=== PATIENT | female | born 1945 | race Caucasian/White ===

== ENCOUNTER 2016-12-25 21:13 | Emergency (ER) | payer MEDICARE ==
[2011-11-03 06:44] VITALS: BMI 29.7
[2016-12-25 22:04] LABS: APPEARANCE CLEAR (CLEAR); BILIRUBIN NEGATIVE (NEGATIVE); COLOR YELLOW (YELLOW); GLUCOSE NEGATIVE (NEGATIVE); KETONE NEGATIVE (NEGATIVE); LEUKOCYTE ESTERASE NEGATIVE (NEGATIVE); NITRITE NEGATIVE (NEGATIVE); PROTEIN NEGATIVE (NEGATIVE); SPECIFIC GRAVITY 1.015 (1.005-1.020); UROBILINOGEN NORMAL (NORMAL)
[2016-12-25 22:25] LABS: BASOPHILS 0.3 % (0-2); HEMATOCRIT 43.2 % (36.0-48.0); HEMOGLOBIN 14.4 g/dL (12-16); IMMATURE GRANULOCYTES 0.1 % (0-5); LYMPHOCYTES 33.8 % (15-50); MCH 31.1 pg (26.0-34.0); MCHC 33.3 g/dL (31.0-37.0); MCV 93.3 fL (80.0-100.0); MEAN PLATELET VOLUME 9.4 fL (7.4-10.4); MONOCYTES 9.2 % (2-11); NEUTROPHILS 54.6 % (40-80); PLATELET COUNT 322 10x3/uL (130-400); RBC 4.63 10x6/uL (4.00-5.40); RDW 13.6 % (11.5-14.5)
[2016-12-25 22:52] LABS: CALC OSMOLALITY 280 mosm/kg (275-300); CALCIUM 9.5 mg/dL (8.5-10.1); CARBON DIOXIDE 29.7 mmol/L (21.0-32.0); CHLORIDE - SERUM 103 mmol/L (98-107); CKMB 0.4 U/L (0.0-3.6); CREATINE KINASE 32 UL (21-215); CREATININE - SERUM 1.2 mg/dL (0.6-1.3); GLUCOSE 134 mg/dL (74-106); POTASSIUM - SERUM 3.3 mmol/L (3.5-5.1); SODIUM 140 mmol/L (136-145); THYROID STIMULATING HORMONE 0.75 uIU/mL (0.36-3.74); UREA NITROGEN 13 mg/dL (7-18); eGFR NON AFRICAN AMERICAN 47 mL/min (90-120)
[2016-12-25 22:53] LABS: TROPONIN-I < 0.017 ng/mL (0.000-0.060)
== END 2016-12-25 23:15 | disposition home or self-care (01) ==
LOC: D.ER 21:13
PROVIDERS: Nurse Practitioner Acute Care
DX: R00.2 Palpitations (principal); K21.9 Gastro-esophageal reflux disease without esophagitis; E03.9 Hypothyroidism, unspecified; I49.3 Ventricular premature depolarization

== ENCOUNTER → 2017-08-29 17:58 | Outpatient (CLI) | payer MEDICARE ==
[2011-11-03 06:44] VITALS: BMI 29.7
[~2017-08-29 17:58] MED LIST: BACTRIM 400-801 TAB PO; ELIQUIS2.5 MG PO; ESTRACE 0.0142.5 GM VG; GLUCOSAMINE & C1 CAP PO; KEFLEX500 MG PO; METOPROLOL TART25 MG PO; MIRALAX17 GM PO; OXYCODONE HCL5 MG PO; OYST-CAL-5001 TAB PO; PROTONIX40 MG PO; SYNTHROID100 MCG PO; TYLENOL W/CODEI1 TAB PO; VITAMIN B COMPL1 TAB PO; VITAMIN D5000 UNIT PO; ZANAFLEX4 MG PO
[2017-09-09 16:25] VITALS: BMI 30.1
== END | disposition home or self-care (01) ==
LOC: D.LABREF 17:58
DX: M17.12 Unilateral primary osteoarthritis, left knee (principal); Z11.2 Encounter for screening for other bacterial diseases

== ENCOUNTER 2017-09-07 10:00 | Inpatient (IN) | payer MEDICARE ==
[~2017-09-07] VITALS: Ht 152.4 cm; Wt 70.0 kg
--- NOTE | ~2017-09-07 | OP ---
PATIENT NAME: MAYRA POWERS MEDICAL RECORD: [id number] :[birth year] LOCATION:D.MS [id number] ADMISSION DATE:09/09/17 SURGEON: ANDI LEW, DATE OF OPERATION: 09/09/2017 PROCEDURE PERFORMED: Left total knee arthroplasty. PREOPERATIVE DIAGNOSIS: Left knee osteoarthritis. POSTOPERATIVE DIAGNOSIS: Left knee osteoarthritis. INDICATIONS: Ms. Powers is a 71-year-old female that has suffered with left knee pain for quite some time now. She has tried taking anti-inflammatories and had injections, which none have been successful recently and she is tired of it affecting her activities of daily living and wished to proceed forward with the procedure. She is aware of the risks and benefits of procedure as she was informed in the office. SURGEON: Andi Lew DO TOURNIQUET TIME: 51 minutes. BLOOD LOSS: Approximately 150 mL. COMPLICATIONS: None. DESCRIPTION OF PROCEDURE: The patient was given a block in the preoperative area and taken to the operative suite, laid in supine position. Left lower extremity was prepped and draped in sterile fashion. The patient was given a gram of Ancef preoperatively and TXA as well. Once both lower extremities were prepped and draped in sterile fashion, timeout was performed and everyone was agreement with the correct side, site, and patient. The incision was marked out then on the anterior aspect of the knee in the midline and the Ioban was placed over the knee. The 10-blade knife was then used to dissect down to the capsule and then switched out for a new 10-blade. The capsulotomy was performed in the medial parapatellar approach. After medial patellar approach was done, the patella was everted and milled down to appropriate size for the patellar prosthesis. The knee was then flexed up and then the intramedullary canal was entered with a drill and Asepto was used to irrigate and then suction was used to dissect out any marrow that had come out. The intramedullary guide was then used to resect the distal femur. After this was done, the tibia was exposed and tibial resection was done. We then cleaned out the menisci and extension blocks seemed to fit well and the knee was flexed up and the sizer was used to be a 60. The 4-in-1 cutting block was then placed and the femur was cut with the anterior, posterior, and chamfer cuts. After this was done, the trial was put in and the tibial tray was floated in and rotation was marked, seemed to be a little tight medially and we did a little medial release and the poly did seem to lift up a little, so pie crusting was done of the PCL. After this was done, the drill holes were made in the femur and then the patella was drilled for the prosthesis. The knee was thoroughly irrigated and then the tibia was exposed and sized to be 63 tibial tray and that was punched and then cement was mixed. Cement was put in the tibia and then on the tibial tray and put into place and impacted 2 times and the excess cement was removed each time. The femur was then put into place and a 10 poly was put in between them, knee brought into extension and the patella was put on place 2 with cement and the squeezer was OPERATIVE REPORT [id number] MAYRA POWERS put in. Excess cement was removed off the patella. Tourniquet was let down at 51 minutes. Any bleeders were coagulated at that time. We then sized up to a 10, 12 felt too tight, and decided to use a 10 deep-dish due to some of the liftoff. This seemed to trial very well and patient had good motion and was very stable. After this was done, the tibial locking bar was put in for the poly and the knee was thoroughly irrigated. Hasmukh was used inside the joint and the joint capsule was closed. The patella seemed to be a little lifted off medially and a slight lateral release was done on the outside of the capsule and the lateral side, which seemed to center the patella quite nicely. The capsule was then closed with #1 Vicryl in a mkdhes-ri-pchup fashion and then the capsule irrigated. Hasmukh was put on the capsule and the skin was closed with 2-0 Vicryl in inverted interrupted fashion and ZipLine was placed on the knee for skin closure. Blood loss approximately 150 mL. Tourniquet time 51 minutes. No complications. TRANSINT:[id number] Voice Confirmation ID: [id number] DOCUMENT ID: [id number] ANDI LEW DO at 1416 CC: [id number] DICTATION DATE: 09/09/17 1049 [employer] EQUIPMENT: 09/09/17 1348 ADM IN [facility] [address] [id number]
[~2017-09-07 10:00] MED LIST changes: -ELIQUIS2.5 MG PO; -KEFLEX500 MG PO; -MIRALAX17 GM PO; -OXYCODONE HCL5 MG PO
[2017-09-07] MEDS ORDERED: MIRALAX17 GM PO (11:04)
[2017-09-07 12:26] LABS: APPEARANCE CLEAR (CLEAR); BILIRUBIN NEGATIVE (NEGATIVE); COLOR GREEN (YELLOW); GLUCOSE NEGATIVE (NEGATIVE); KETONE NEGATIVE (NEGATIVE); NITRITE NEGATIVE (NEGATIVE); PROTEIN NEGATIVE (NEGATIVE); UROBILINOGEN NORMAL (NORMAL)
[2017-09-07 12:27] LABS: BASOPHILS 0.2 % (0-2); EOSINOPHILS 2.1 % (0-7); HEMATOCRIT 43.1 % (36.0-48.0); HEMOGLOBIN 14.2 g/dL (12-16); IMMATURE GRANULOCYTES 0.4 % (0-5); LYMPHOCYTES 37.3 % (15-50); MCH 30.5 pg (26.0-34.0); MCHC 32.9 g/dL (31.0-37.0); MCV 92.5 fL (80.0-100.0); MEAN PLATELET VOLUME 9.9 fL (7.4-10.4); MONOCYTES 11.2 % (2-11); NEUTROPHILS 48.8 % (40-80); PLATELET COUNT 366 10x3/uL (130-400); RBC 4.66 10x6/uL (4.00-5.40); RDW 13.5 % (11.5-14.5); WBC 8.1 10x3/uL (4.8-10.8)
[2017-09-07 12:28] LABS: ANION GAP 13.6 mmol/L (8-16); CALCIUM 9.5 mg/dL (8.5-10.1); CARBON DIOXIDE 27.3 mmol/L (21.0-32.0); POTASSIUM - SERUM 3.9 mmol/L (3.5-5.1)
[2017-09-07 12:34] LABS: APTT 28.6 SECONDS (22.8-39.4); INR 0.99 (0.85-1.17); PROTIME 12.7 SECONDS (11.6-15.0)
[2017-09-09] VITALS (14 sets, daily range): BP systolic 101–142; BP diastolic 53–76; Ht 152.4 cm; Wt 70.0 kg
[2017-09-10] VITALS: BP 98/54
[2017-09-10 05:17] LABS: HEMATOCRIT 36.7 % (36.0-48.0); HEMOGLOBIN 11.9 g/dL (12-16); MCHC 32.4 g/dL (31.0-37.0); MCV 92.4 fL (80.0-100.0); MEAN PLATELET VOLUME 9.9 fL (7.4-10.4); RBC 3.97 10x6/uL (4.00-5.40); WBC 16.6 10x3/uL (4.8-10.8)
[2017-09-10 05:42] LABS: ALBUMIN 3.1 g/dL (3.4-5.0); ANION GAP 13.9 mmol/L (8-16); BILIRUBIN - TOTAL 0.26 mg/dL (0.2-1.3); CALCIUM 8.5 mg/dL (8.5-10.1); CARBON DIOXIDE 25.3 mmol/L (21.0-32.0); POTASSIUM - SERUM 4.2 mmol/L (3.5-5.1); PROTEIN - SERUM 6.3 g/dL (6.4-8.2)
[2017-09-10 08:16] VITALS: BP 114/55
[2017-09-10 12:22] VITALS: BP 116/53
[2017-09-10 16:13] VITALS: BP 110/61
[2017-09-10 20:00] VITALS: BP 122/54
[2017-09-10 23:44] VITALS: BP 130/73
[2017-09-11 04:00] VITALS: BP 113/57
[2017-09-11 05:23] LABS: HEMATOCRIT 33.4 % (36.0-48.0); HEMOGLOBIN 10.7 g/dL (12-16); MCH 29.9 pg (26.0-34.0); MCV 93.3 fL (80.0-100.0); MEAN PLATELET VOLUME 9.6 fL (7.4-10.4); RBC 3.58 10x6/uL (4.00-5.40); RDW 13.6 % (11.5-14.5)
[2017-09-11 05:26] LABS: WBC 10.7 10x3/uL (4.8-10.8)
[2017-09-11 08:18] VITALS: BP 126/56
[2017-09-11] MEDS ORDERED: ELIQUIS2.5 MG PO (09:40)
[2017-09-11] MEDS ORDERED: OXYCODONE HCL5 MG PO (09:41)
[2017-09-11] MEDS ORDERED: KEFLEX500 MG PO (09:43)
== END 2017-09-11 12:56 | disposition home or self-care (01) | DRG 470 ==
LOC: D.SDCHOLD 09-09 05:17 → D.MS 09-09 11:26 → D.SDCHOLD 09-12 10:00
PROVIDERS: Orthopaedic Surgery
PROC: 0SRD0J9 Replacement of Left Knee Joint with Synthetic Substitute, Cemented, Open Approach (ICD-10-PCS; principal; 2017-09-09 09:00)
DX: M17.12 Unilateral primary osteoarthritis, left knee (principal); I10 Essential (primary) hypertension; Z87.891 Personal history of nicotine dependence

== ENCOUNTER → 2018-06-26 14:13 | Outpatient (CLI) | payer MEDICARE ==
[2017-09-09 16:25] VITALS: BMI 30.1
[~2018-06-26 14:13] MED LIST changes: +ALEVE220 MG PO; +BAYER CHEWABLE81 MG; +CYCLOBENZAPRINE5 MG PO; +ELIQUIS2.5 MG PO; +KEFLEX500 MG PO; +MIRALAX17 GM PO; +OXYCODONE HCL5 M1 PO; +OXYCODONE HCL5 MG PO; +SKELAXIN800 MG PO; +TYLENOL W/CODEI1 TAB
== END | disposition home or self-care (01) ==
LOC: D.LABREF 14:13
DX: M17.11 Unilateral primary osteoarthritis, right knee (principal); Z11.8 Encounter for screening for other infectious and parasitic diseases

== ENCOUNTER 2018-07-04 05:05 | Inpatient (IN) | payer MEDICARE ==
[2018-06-30 15:27] LABS: BASOPHILS 0.2 % (0-2); EOSINOPHILS 2.2 % (0-7); HEMOGLOBIN 13.6 g/dL (12-16); IMMATURE GRANULOCYTES 0.2 % (0-5); LYMPHOCYTES 41.9 % (15-50); MCH 28.5 pg (26.0-34.0); MCHC 32.4 g/dL (31.0-37.0); MCV 88.1 fL (80.0-100.0); MEAN PLATELET VOLUME 9.6 fL (7.4-10.4); MONOCYTES 7.2 % (2-11); NEUTROPHILS 48.3 % (40-80); PLATELET COUNT 306 10x3/uL (130-400); RBC 4.77 10x6/uL (4.00-5.40); RDW 13.5 % (11.5-14.5); WBC 8.1 10x3/uL (4.8-10.8)
[2018-06-30 15:29] LABS: APPEARANCE CLEAR (CLEAR); BILIRUBIN NEGATIVE (NEGATIVE); COLOR YELLOW (YELLOW); GLUCOSE NEGATIVE (NEGATIVE); KETONE NEGATIVE (NEGATIVE); NITRITE NEGATIVE (NEGATIVE); PROTEIN NEGATIVE (NEGATIVE); UROBILINOGEN NORMAL (NORMAL)
[2018-06-30 15:32] LABS: EPITHELIAL CELLS 0-5 /hpf (0-5); RED CELLS - URINE 0-5 /hpf (0-5)
[2018-06-30 15:33] LABS: BACTERIA FEW /hpf (NONE SEEN)
[2018-06-30 15:37] LABS: ANION GAP 10.7 mmol/L (8-16); CALCIUM 9.5 mg/dL (8.5-10.1); CARBON DIOXIDE 29.3 mmol/L (21.0-32.0); CREATININE - SERUM 1.2 mg/dL (0.6-1.3)
[2018-06-30 15:40] LABS: APTT 28.3 SECONDS (22.8-39.4); INR 1.11 (0.85-1.17); PROTIME 13.9 SECONDS (11.6-15.0)
[~2018-07-04] VITALS: Ht 152.4 cm; Wt 75.8 kg
--- NOTE | ~2018-07-04 | MORECARE ---
CASE MANAGEMENT DISCHARGE SUMMARY PATIENT: MAYRA SAWANT [place] UNIT: [id number] ADM DATE: 07/04/18 AGE: 72 : [birth year] SEX: F ROOM/BED: D.2207 AUTHOR: BUCK JAEGER PHYSICIAN: REFERRING PHYSICIAN: KEVIN LEW DO DATE OF SERVICE: 07/05/18 Discharge Plan Patient Name: MAYRA SAWANT Facility: [facility]:[place] : 1945 Planned Disposition: Home Anticipated Discharge Date: Discharge Date: Expected LOS: Initial Reviewer: [email or web address] Initial Review Date: 07/04/2018 Generated: 07/05/18 1:53 pm Comments DCP- Discharge Planning Updated by [email or web address]: Linda Agarwal on 07/05/18 11:[address] Patient Name: MAYRA SAWANT Admission Status: Elective Accout number: [id number] Admission Date: 07-04-2018 : 1945 Admission Diagnosis: Attending: KEVIN LEW Current LOS: 1 Anticipated DC Date: Planned Disposition: Home Primary Insurance: MEDICARE A & B Discharge Planning Comments: CM met with patient to assess discharge planning needs. Patient stated that she lives in [place] where she is independent at home. She lives with her and he will be the one to special education bus driver her home at discharge. There are 2 steps to her home. She would like to use [facility] in [place]. I spoke with Kevin and her appointment will be TuesdayJul 08 at 2:00pm. She has a walker, 3 in 1 bedside commode, wheelchair, CPM and Cool Pack. [employer] is the DME company who has already delivered the DME to home. CM will continue to follow and assist with DC planning as needed Rn Assessment: Linda Agarwal DCPIA - Discharge Planning Initial Assessment Updated by [email or web address]: Linda Agarwal on 07/05/18 12:44 pm * Is the patient Alert and Oriented? Yes * How many steps to enter\exit or inside your home? * PCP Belinda Abrams * Pharmacy [facility] [place] * Preadmission Environment Home with Family * ADLs Independent * Equipment Bedside Commode Rolling Walker Shower Chair Walker Wheelchair * Other Equipment has cpm and cool machine * List name and contact numbers for known caregivers / representatives who currently or will assist patient after discharge: Wilfrido () [phone] * Verbal permission to speak to the caregivers and representatives has been obtained from the patient. N/A * Additional services required to return to the preadmission environment? Yes * Can the patient safely return to the preadmission environment? Yes * Has this patient been hospitalized within the prior 30 days at any hospital? No Last DP export: 07/05/18 11:46 Patient Name: MAYRA SAWANT Page [id number] at 1253 All edits/amendments must be made on the electronic document DICTATION DATE: 07/05/181252 FERRYBOAT OPERATOR HELPER: KRISTOFER 07/05/181252 RPT#: [id number] DC DATE: STATUS: ADM IN [facility] [address] [place] [address] END OF REPORT
--- NOTE | ~2018-07-04 | OP ---
PATIENT NAME: MAYRA POWERS KIYA MEDICAL RECORD: [id number] :[birth year] LOCATION:D.MS Elias2208 ADMISSION DATE:07/04/18 SURGEON: KEVIN LEW DO DATE OF OPERATION: 07/04/2018 PROCEDURE PERFORMED: A right total knee arthroplasty, used was a Biomet Vanguard cruciate retaining 57.5 right femur, a 67 tibia, 31 patella, and a 14 poly anterior stabilized E-poly. PREOPERATIVE DIAGNOSIS: Right knee osteoarthritis, end-stage. POSTOPERATIVE DIAGNOSIS: Right knee osteoarthritis, end-stage. INDICATIONS: Ms. Powers is a 72-year-old female who had her left knee done at the beginning of this year, I believe in August, she did well with that one. Her right knee had been giving her problems for quite some time. She had tried injections, physical therapy and all manner of nonoperative management. She was tired of it affecting her activities of daily living and wanted something done. Having had the left knee done, she was ready to have the right knee done. She was informed of the risks and benefits of the procedure including infection, bleeding, damage to nerve and vessels, need for further surgery, blood clots, and even . She was okay with those risks and consented to the procedure. SURGEON: Kevin Lew DO DESCRIPTION OF THE PROCEDURE: The patient was given a block by anesthesia in the preoperative area and taken to the operative suite, given 2 grams Ancef and 80 units of gentamicin preoperatively. The right lower extremity was then prepped and draped in sterile fashion. Timeout was performed, everyone was in agreement of the correct side, site, patient, and procedure. Once timeout had been performed, incision began on the midline of the anterior knee. Careful dissection was made down to the capsule coagulating all vessels and bleeding with the Aquamantys during the dissection and throughout the procedure. A fresh knife was used and a medial parapatellar approach was used to open the knee. The fat pad was partially removed and the patella was exposed and milled down. The femur was then exposed and the drill was used to enter the femoral canal and this was irrigated also with Asepto after the drill was removed. The distal femur was then cut and the tibia was cut as well. Then, the knee was brought to extension. A lamina day haul youth supervisor was used. The lamina day haul youth supervisor was used to expose the knee and the menisci were removed from the medial and lateral surface. The posterior capsule, medial and lateral genicular arteries were coagulated at that time with the Aquamantys. The extension block was then used and fit very easily. The knee was then flexed and then the femur was measured to be 57.5. The cutting block was put on and the 4-in-1 cutting block was used to cut the femur. The trial was then put on. The tibial tray was put in with the poly and the knee was ranged to marked rotation of the tray and then the patella was drilled and so were the lug holes for the femur and then the tibia was exposed and seemed to be a 67 tray. This was drilled and punched and then irrigated thoroughly. The cement was then mixed, cement was placed on the tibia and the implant and impacted into place. Excess cement was removed. The femur was then put on and a 12 poly was put in between and brought to extension. The patella was then exposed and cemented and held into place while the cement hardened. Thorough irrigation was done at this time of the knee and any excess cement seen was removed. Once the cement had hardened, we sized polys, 14 seemed to fit the best and did an anterior stabilized poly. Once the poly was stable, the knee OPERATIVE REPORT [id number] MAYRA POWERS KIYA was seen to fit well and ranged well. The knee was irrigated again and then Surgicel beads and vancomycin, tobramycin powder were placed on the gutters and into the knee itself. The capsule was then closed with #2 Ethibond in nzymnh-wo-xredc fashion and Stratafix was ran over that on the capsule. Top of the capsule was then irrigated and the rest of antibiotic tobramycin and vancomycin were put in that space. The skin was closed with 2-0 Vicryl in an interrupted fashion. The ZipLine was placed on the knee to hold the skin together for skin closure. Adaptic, 4 x 4s, ABD, Webril, Peter wrap were then placed on the knee. COLE hose stockinette was placed up to the knee. The patient was awakened and taken to recovery in stable condition. COMPLICATIONS: None. BLOOD LOSS: 150 mL approximately. TRANSINT:[id number] Voice Confirmation ID: [id number] DOCUMENT ID: [id number] KEVIN LEW DO at 1245 CC: [id number] DICTATION DATE: 07/04/18899 PULP MILL OPERATOR: 07/04/18 0932 ADM IN [facility] [address] [id number]
--- NOTE | ~2018-07-04 | MORECARE ---
CASE MANAGEMENT DISCHARGE SUMMARY PATIENT: MAYRA SAWANT UNIT: [id number] ADM DATE: 07/04/18 AGE: 72 : [birth year] SEX: F ROOM/BED: D.2208 AUTHOR: BUCK JAEGER PHYSICIAN: REFERRING PHYSICIAN: ANDI LEW DO DATE OF SERVICE: 07/05/18 Discharge Plan Patient Name: MAYRA SAWANT Facility: [facility]:[place] : 1945 Planned Disposition: Home Anticipated Discharge Date: Discharge Date: Expected LOS: Initial Reviewer: [email or web address] Initial Review Date: 07/04/2018 Generated: 07/05/18 1:46 pm DCPIA - Discharge Planning Initial Assessment Updated by [email or web address]: Linda Agarwal on 07/05/18 12:44 pm * Is the patient Alert and Oriented? Yes * How many steps to enter\exit or inside your home? * PCP Belinda Abrams * Pharmacy [facility] [place] * Preadmission Environment Home with Family * ADLs Independent * Equipment Bedside Commode Rolling Walker Shower Chair Walker Wheelchair * Other Equipment has cpm and cool machine * List name and contact numbers for known caregivers / representatives who currently or will assist patient after discharge: Wilfrido () [phone] * Verbal permission to speak to the caregivers and representatives has been obtained from the patient. N/A * Additional services required to return to the preadmission environment? Yes * Can the patient safely return to the preadmission environment? Yes * Has this patient been hospitalized within the prior 30 days at any hospital? No Patient Name: MAYRA SAWANT Page 99207 at 1246 All edits/amendments must be made on the electronic document DICTATION DATE: 07/05/18 1246 HOOP FLARING MACHINE OPERATOR: KRISTOFER 07/05/18 1246 RPT#: [id number] DC DATE: STATUS: ADM IN [facility] [address] [place] [address] END OF REPORT
--- NOTE | ~2018-07-04 | MORECARE ---
CASE MANAGEMENT DISCHARGE SUMMARY PATIENT: MAYRA SAWANT [place] UNIT: [id number] ADM DATE: 07/04/18 AGE: 72 : [birth year] SEX: F ROOM/BED: D.1003 AUTHOR: BUCK JAEGER PHYSICIAN: REFERRING PHYSICIAN: KEVIN LEW DO DATE OF SERVICE: 07/06/18 Discharge Plan Patient Name: MAYRA SAWANT Facility: [facility]:[place] : 1945 Planned Disposition: Home Anticipated Discharge Date: Discharge Date: 07/05/2018 Expected LOS: 0 Initial Reviewer: [email or web address] Initial Review Date: 07/04/2018 Generated: 07/06/18 10:26 am Comments DCP- Discharge Planning Updated by [email or web address]: Linda Agarwal on 07/05/18 1:[address] Patient will be discharging home today. Patient has all her dme DCP- Discharge Planning Updated by [email or web address]: Linda Agarwal on 07/05/18 11:[address] Patient Name: MAYRA SAWANT Admission Status: Elective Accout number: [id number] Admission Date: 07-04-2018 : 1945 Admission Diagnosis: Attending: KEVIN LEW Current LOS: 1 Anticipated DC Date: Planned Disposition: Home Primary Insurance: MEDICARE A & B Discharge Planning Comments: CM met with patient to assess discharge planning needs. Patient stated that she lives in [place] where she is independent at home. She lives with her and he will be the one to train driver her home at discharge. There are 2 steps to her home. She would like to use [facility] in [place]. I spoke with Kevin and her appointment will be TuesdayJul 08 at 2:00pm. She has a walker, 3 in 1 bedside commode, wheelchair, CPM and Cool Pack. [employer] is the DME company who has already delivered the DME to home. CM will continue to follow and assist with DC planning as needed Stock Room Manager: Linda Agarwal DCPIA - Discharge Planning Initial Assessment Updated by [email or web address]: Linda Agarwal on 07/05/18 12:44 pm * Is the patient Alert and Oriented? Yes * How many steps to enter\exit or inside your home? * PCP Belinda Abrams * Pharmacy [facility] [place] * Preadmission Environment Home with Family * ADLs Independent * Equipment Bedside Commode Rolling Walker Shower Chair Walker Wheelchair * Other Equipment has cpm and cool machine * List name and contact numbers for known caregivers / representatives who currently or will assist patient after discharge: Wilfrido () [phone] * Verbal permission to speak to the caregivers and representatives has been obtained from the patient. N/A * Additional services required to return to the preadmission environment? Yes * Can the patient safely return to the preadmission environment? Yes * Has this patient been hospitalized within the prior 30 days at any hospital? No Last DP export: 07/05/18 1:45 Patient Name: MAYRA SAWANT Page 16572 at 0927 All edits/amendments must be made on the electronic document DICTATION DATE: 07/06/18925 CAN HANDLER: KRISTOFER 07/06/18925 RPT#: [id number] DC DATE:07/05/18 STATUS: DIS IN [facility] [address] [place] [address] END OF REPORT
--- NOTE | ~2018-07-04 | MORECARE ---
CASE MANAGEMENT DISCHARGE SUMMARY PATIENT: MAYRA SAWANT [place] UNIT: [id number] ADM DATE: 07/04/18 AGE: 72 : [birth year] SEX: F ROOM/BED: D.4451 AUTHOR: BUCK JAEGER PHYSICIAN: REFERRING PHYSICIAN: KEVIN LEW DO DATE OF SERVICE: 07/05/18 Discharge Plan Patient Name: MAYRA SAWANT Facility: [facility]:[place] : 1945 Planned Disposition: Home Anticipated Discharge Date: Discharge Date: Expected LOS: Initial Reviewer: [email or web address] Initial Review Date: 07/04/2018 Generated: 07/05/18 3:45 pm Comments DCP- Discharge Planning Updated by [email or web address]: Linda Agarwal on 07/05/18 1:[address] Patient will be discharging home today. Patient has all her dme DCP- Discharge Planning Updated by [email or web address]: Linda Agarwal on 07/05/18 11:[address] Patient Name: MAYRA SAWANT Admission Status: Elective Accout number: [id number] Admission Date: 07-04-2018 : 1945 Admission Diagnosis: Attending: KEVIN LEW Current LOS: 1 Anticipated DC Date: Planned Disposition: Home Primary Insurance: MEDICARE A & B Discharge Planning Comments: CM met with patient to assess discharge planning needs. Patient stated that she lives in [place] where she is independent at home. She lives with her and he will be the one to rail car driver her home at discharge. There are 2 steps to her home. She would like to use [facility] in [place]. I spoke with Kevin and her appointment will be TuesdayJul 08 at 2:00pm. She has a walker, 3 in 1 bedside commode, wheelchair, CPM and Cool Pack. [employer] is the DME company who has already delivered the DME to home. CM will continue to follow and assist with DC planning as needed Wrist Liner: Linda Agarwal DCPIA - Discharge Planning Initial Assessment Updated by [email or web address]: Linda Agarwal on 07/05/18 12:44 pm * Is the patient Alert and Oriented? Yes * How many steps to enter\exit or inside your home? * PCP Belinda Abrams * Pharmacy [facility] [place] * Preadmission Environment Home with Family * ADLs Independent * Equipment Bedside Commode Rolling Walker Shower Chair Walker Wheelchair * Other Equipment has cpm and cool machine * List name and contact numbers for known caregivers / representatives who currently or will assist patient after discharge: Wilfrido () [phone] * Verbal permission to speak to the caregivers and representatives has been obtained from the patient. N/A * Additional services required to return to the preadmission environment? Yes * Can the patient safely return to the preadmission environment? Yes * Has this patient been hospitalized within the prior 30 days at any hospital? No Last DP export: 07/05/18 11:53 Patient Name: MAYRA SAWANT Page [id number] at 1445 All edits/amendments must be made on the electronic document DICTATION DATE: 07/05/181443 INTEGRATED MARKETING INTERN: KRISTOFER 07/05/181443 RPT#: [id number] DC DATE: STATUS: ADM IN [facility] [address] [place] [address] END OF REPORT
[~2018-07-04 05:05] MED LIST changes: -ALEVE220 MG PO; -BAYER CHEWABLE81 MG; -CYCLOBENZAPRINE5 MG PO; -OXYCODONE HCL5 M1 PO; -TYLENOL W/CODEI1 TAB
[2018-07-04] MEDS ORDERED: BAYER CHEWABLE81 MG (05:41)
[2018-07-04] MEDS ORDERED: ALEVE220 MG PO (05:42)
[2018-07-04] MEDS ORDERED: TYLENOL W/CODEI1 TAB (05:42)
[2018-07-04 05:53] VITALS: BP 144/85; BMI 32.2
[2018-07-04 10:14] VITALS: BP 134/84
[2018-07-04 12:28] VITALS: BP 120/82; BMI 32.6
[2018-07-04 21:11] VITALS: BP 103/49
[2018-07-05 03:39] VITALS: BP 104/46
[2018-07-05 07:59] LABS: HEMATOCRIT 35.9 % (36.0-48.0); HEMOGLOBIN 11.4 g/dL (12-16); MCH 28.4 pg (26.0-34.0); MCHC 31.8 g/dL (31.0-37.0); MCV 89.5 fL (80.0-100.0); MEAN PLATELET VOLUME 9.7 fL (7.4-10.4); RBC 4.01 10x6/uL (4.00-5.40); WBC 10.4 10x3/uL (4.8-10.8)
[2018-07-05 09:03] VITALS: BP 138/73
[2018-07-05 12:16] VITALS: Ht 152.4 cm; Wt 75.8 kg
[2018-07-05 12:36] VITALS: BP 143/64
[2018-07-05] MEDS ORDERED: KEFLEX500 MG PO (14:42)
[2018-07-05] MEDS ORDERED: ELIQUIS2.5 MG PO (14:42)
[2018-07-05] MEDS ORDERED: CYCLOBENZAPRINE5 MG PO (14:43)
[2018-07-05] MEDS ORDERED: OXYCODONE HCL5 M1 PO (14:43)
== END 2018-07-05 17:12 | disposition home or self-care (01) | DRG 470 ==
LOC: D.MS 05:05 → D.SDCHOLD 05:05 → D.MS 09:43
PROVIDERS: Orthopaedic Surgery
PROC: 0SRC0JZ Replacement of Right Knee Joint with Synthetic Substitute, Open Approach (ICD-10-PCS; principal; 2018-07-04 07:30)
DX: M17.11 Unilateral primary osteoarthritis, right knee (principal)

== ENCOUNTER → 2018-08-23 12:08 | Outpatient (CLI) | payer MEDICARE ==
[2018-07-05 12:16] VITALS: BMI 32.6
[~2018-08-23 12:08] MED LIST changes: +ALEVE220 MG PO; +BAYER CHEWABLE81 MG; +CYCLOBENZAPRINE5 MG PO; +OXYCODONE HCL5 M1 PO; +TYLENOL W/CODEI1 TAB
== END | disposition home or self-care (01) ==
LOC: D.HCCARDIO 12:08
DX: R06.02 Shortness of breath (principal)